=== PATIENT | male | born 1935 | race Caucasian/White ===

== ENCOUNTER 2017-03-30 11:29 | Emergency (ER) | payer MEDICARE, BC ==
--- NOTE | 2017-03-30 11:46 | Emergency Department Record ---
History of Present Illness - General Chief complaint: Weakness Stated complaint: FALL/POSSIBLE UTI Time Seen by Provider: 03/30/17 11:35 Source: Patient Mode of Arrival: Wheelchair Limitations: No limitations - History of Present Illness Initial comments: 81 yo male presents after a fall with weakness. The of the patient was transferring him positions and he slumped to the ground. No syncope or LOC. She does not think he has any injuries. EMS was call to house for a lift assist. She brought him to the ED due to his significant weakness. In the past this has been UTI's per the . The patient has significant dementia and is a poor historian. He does deny any pain. No recent fevers, chills, vomiting or diarrhea. He saw his PCP yesterday. His Lisinopril yesterday was decreased from 10mg to 5mg. No other changes. He was discharged form [facility] on Monday. He has been getting around the home with a walker on his own since rehab discharge one week ago. This morning his legs seemed very shaky and weak and he was unable to get off the toilet with her help. The weakness is bilateral and not one sided. MD Complaint: Generalized weakness Onset/Timin -: Hour(s) Location: Generalized Severity: Moderate Consistency: Intermittent Improves with: None Worsens with: None Context: Other (Dementia) Associated Symptoms: Confusion - Tariq Coma Scale Eye Response: (4) Open spontaneously Motor Response: (6) Obeys commands Verbal Response: (5) Oriented Tariq Total: 15 - Related Data Home Medications Medication Instructions Recorded Confirmed Last Taken Bupropion HCl [Bupropion Xl] 150 mg PO DAILY 09/18/16 03/30/17 03/29/17 Carbidopa/Levodopa [Carbidopa-Levo 2 each PO TID 09/18/16 03/30/17 03/29/17 25-100 mg Odt] Cholecalciferol (Vitamin D3) 1,000 unit PO DAILY 09/18/16 03/30/17 03/29/17 [Vitamin D3] Citalopram Hydrobromide 40 mg PO DAILY 09/18/16 03/30/17 03/29/17 [Citalopram HBr] Dicyclomine HCl 10 mg PO DAILY 09/18/16 03/30/17 03/30/17 Donepezil HCl 10 mg PO DAILY 09/18/16 03/30/17 03/29/17 Fesoterodine Fumarate [Toviaz] 4 mg PO DAILY 09/18/16 03/30/17 03/29/17 Insulin Glargine,Hum.rec.anlog 34 unit SQ DAILY 09/18/16 03/30/17 03/29/17 [Lantus] Lisinopril 10 mg PO DAILY 09/18/16 03/30/17 03/29/17 Metformin HCl [Glucophage Xr] 750 mg PO DAILY 09/18/16 03/30/17 03/29/17 Metoprolol Succinate 25 mg PO BID 09/18/16 03/30/17 03/29/17 Multivitamin [Multi-Vitamin Daily] 1 each PO DAILY 09/18/16 03/30/17 03/29/17 Pioglitazone HCl 45 mg PO DAILY 09/18/16 03/30/17 03/29/17 Simvastatin [Simvastatin] 20 mg PO DAILY 09/18/16 03/30/17 03/29/17 Aspirin [Adult Low Dose Aspirin EC] 81 mg PO DAILY 03/30/17 03/30/17 03/29/17 Allergies Allergy/AdvReac Type Severity Reaction Status Date / Time No Known Drug Allergies Allergy Unknown Verified 09/18/16 11:12 [NO KNOWN DRUG ALLERGIES] Travel Screening - Travel/Exposure Within Last 30 Days Have you traveled within the last 30 days?: No - Travel/Exposure Within Last Year Have you traveled outside the [place] in the last year?: No - Additonal Travel Details Have you been exposed to anyone with a communicable illness?: No Review of Systems Constitutional: Reports: Malaise, Weakness. Denies: Chills, Fever Eyes: Denies: Eye discharge, Eye pain ENT: Denies: Congestion, Throat pain Respiratory: Denies: Cough, Dyspnea, Hemoptysis, Stridor, Wheezes Cardiovascular: Denies: Chest pain, Palpitations, Syncope Endocrine: Reports: Fatigue. Denies: Polydipsia, Polyuria Gastrointestinal: Denies: Abdominal pain, Diarrhea, Nausea, Vomiting Genitourinary: Denies: Discharge, Dysuria, Frequency, Hematuria Musculoskeletal: Denies: Arthralgia, Back pain, Joint swelling, Myalgia Skin: Denies: Bruising, Change in color, Rash Neurological: Reports: Confusion (dementia), Weakness (generalized). Denies: Headache, Numbness, Vertigo Psychiatric: Denies: Anxiety Hematological/Lymphatic: Reports: Easy bruising. Denies: Easy bleeding, Swollen glands Past Medical History - SOCIAL HISTORY Smoking Status: Former smoker Alcohol Use: Rare Drug Use: None - RESPIRATORY Hx Respiratory Disorders: Yes Hx Sleep Apnea: Yes Hx of CPAP: Yes - CARDIOVASCULAR Hx Cardio Disorders: Yes Hx Chest Pain: Yes Hx Hypertension: Yes - NEURO Hx Neuro Disorders: Yes Hx TIA: Yes (2013) Comment:: alzheimer's - GI Hx GI Disorders: Yes Hx Irritable Bowel: Yes - Hx Genitourinary Disorders: Yes Comment:: incontinence - ENDOCRINE Hx Endocrine Disorders: Yes Hx Diabetes: Yes Hx Thyroid Disease: No - MUSCULOSKELETAL Hx Musculoskeletal Disorders: No - PSYCH Hx Psych Problems: No - HEMATOLOGY/ONCOLOGY Hx Hematology/Oncology Disorders: Yes Hx Cancer: Yes (skin) Family Medical History Any Significant Family History?: No Hx Cancer: Father, Mother Physical Exam - General General Appearance: Alert, Cooperative, No acute distress - Head Head exam: Atraumatic, Normocephalic, Normal inspection - Eye Eye exam: Normal appearance. negative: Conjunctival injection, Periorbital swelling - ENT ENT exam: Normal exam, Mucous membranes moist Ear exam: Normal external inspection Nasal Exam: Normal inspection Mouth exam: Normal external inspection Teeth exam: Normal inspection Throat exam: Normal inspection - Neck Neck exam: Normal inspection, Full ROM. negative: Tenderness - Respiratory Respiratory exam: Normal lung sounds bilaterally. negative: Respiratory distress, Rhonchi, Stridor, Wheezes - Cardiovascular Cardiovascular Exam: Bradycardia Peripheral Pulses: 2+: Radial (R), Radial (L) - GI/Abdominal GI/Abdominal exam: Soft. negative: Distended, Tenderness - Rectal Rectal exam: Deferred - exam: Deferred - Extremities Extremities exam: Full ROM, Normal capillary refill. negative: Calf tenderness , Joint swelling, Tenderness - Back Back exam: Reports: Normal inspection, Full ROM. Denies: CVA tenderness (R), CVA tenderness (L), Muscle spasm, Paraspinal tenderness, Rash noted, Tenderness , Vertebral tenderness - Neurological Neurological exam: Abnormal gait, Alert, Other (No PND of the upper or lower extremities, he is able to equally raise both legs off the bed at this time). negative: Altered, Motor sensory deficit, Normal gait (Required 2 person lift assist to get into bed, unable to do on own) - Psychiatric Psychiatric exam: negative: Anxious - Skin Skin exam: Abrasion (left forearm, appears older than today) Course Vital Signs 03/30/17 11:30 Temperature 98.4 F Pulse Rate 62 Respiratory 18 Rate Blood Pressure 123/64 Pulse Ox 97 - Reevaluation(s) Reevaluation #1: EKG Ventricular Bigeminy rate of 82, Intervals MO 262, QTc 532, [place] left, ST No acute changes, poor r wave progression. No Prior EKG on EMR, prior rhythm strip demonstrated NSR without Bigeminy. 03/30/17 12:13 03/30/17 12:14 Reevaluation #2: The labs were reviewed. No significant changes on the CBC, CMP, UA. No UTI at this time. The results were discussed with the . The rhythm does not appear to be bigeminy at this time. Repeat EKG ordered. 03/30/17 12:57 03/30/17 13:03 EKG #2 @13:22 NSR rate 64, intervals prolong MO, [place] left, poor R wave progression, No ST changes 03/30/17 13:35 Reevaluation #3: The HCT was reviewed. No changes from the prior. 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 The states he has been worked up for this in the past and even had CSF drainage that did not help clinically with symptoms. The patient did ambulate with his walker. The states she has very good support and prefers home and not admission or thoughts of intermediate manager facility care. They have [facility], home PT and home nursing care already. 03/30/17 15:52 Medical Decision Making - Lab Data Result diagrams: 03/30/17 12:01 03/30/17 12:01 Disposition Disposition: Discharge Clinical Impression: Weakness Disposition: Home, Self-Care Condition: (2) Stable Instructions: Weakness (ED) Additional Instructions: Return if you have any concerns about Mr Messina and his health or safety at home Follow up with your doctor first of the week Forms: Patient Portal Access Time of Disposition: 16:00
[2017-03-30 12:17] LABS: BASO % 0.3 % (0-6); EOS % 2.8 % (0-6); GRAN % 73.5 % (47-80); HEMATOCRIT 35.3 % (42.0-52.0); HEMOGLOBIN 11.5 gm/dl (14.0-18.0); LYMPH % 15.1 % (16-45); MEAN CELL VOLUME 99.4 fl (81-97); MEAN CORPUSCULAR HEMOGLOBIN 32.3 pg (27-33); MEAN CORPUSCULAR HGB CONC 32.6 g/dl (32-36); MEAN PLATELET VOLUME 8.9 fl (7.4-10.4); MONO % 8.3 % (0-9); PLATELET COUNT 204 K/uL (130-400); RED BLOOD COUNT 3.55 M/uL (4.40-5.70); RED CELL DISTRIBUTION WIDTH 13.7 % (11.5-14.5); WHITE BLOOD COUNT W/O DIFF 6.8 K/uL (4.2-12.2)
[2017-03-30 12:29] LABS: ALB/GLOB RATIO 1.1 (1.1-1.8); ALBUMIN 3.3 gm/dL (3.5-5.0); ALKALINE PHOSPHATASE 147 U/L (38-126); ALT/SGPT 23 U/L (21-72); ANION GAP 5.2 (7-16); AST/SGOT 34 U/L (17-59); BILIRUBIN,TOTAL 1.05 mg/dL (0.2-1.3); BLOOD UREA NITROGEN 22 mg/dL (9-20); CARBON DIOXIDE 23.8 mmol/L (22-30); CREATININE 0.7 mg/dL (0.66-1.25); EST GLOMERULAR FILTRATION RATE > 60 ml/min; GLUCOSE,RANDOM 131 mg/dL (70-110); TOTAL PROTEIN 6.2 gm/dL (6.3-8.2)
[2017-03-30 12:30] LABS: URINE APPEARANCE CLEAR; URINE BILIRUBIN NEGATIVE (NEGATIVE); URINE BLOOD TRACE-L (NEGATIVE); URINE COLOR YELLOW; URINE GLUCOSE (UA) NEGATIVE (NEGATIVE); URINE KETONE NEGATIVE (NEGATIVE); URINE LEUKOCYTE ESTERASE NEGATIVE (NEGATIVE); URINE NITRITE NEGATIVE (NEGATIVE); URINE PROTEIN TRACE (NEGATIVE); URINE UROBILINOGEN 0.2 E.U./dL (0.20 - 1.00)
[2017-03-30 12:39] LABS: URINE BACTERIA NONE SEEN; URINE EPITHELIAL CELLS NONE SEEN (FEW); URINE RBC RARE (NONE SEEN); URINE WBC NONE SEEN (0-2/hpf)
[2017-03-30 12:41] LABS: TROPONIN I < 0.012 ng/mL (0.00-0.034)
--- NOTE | 2017-03-31 08:01 | CT SCAN REPORT ---
EXAM: EMERGENCY HEAD CT HISTORY: PATIENT FELL, CONFUSION, WEAKNESS. TECHNIQUE: Axial CT scan of the head was performed without IV contrast. Comparison: Head CT dated 09/18/16. Encounter: Initial. FINDINGS: No definite acute intracranial hemorrhage identified. No focal mass effect or midline shift apparent. Moderate generalized atrophy as before. Chronic appearing deep white matter changes again seen, nonspecific, but likely representing some chronic small vessel deep white matter ischemia. The degree of ventriculomegaly appears slightly more pronounced on the cortical sulci. Component of normal pressure hydrocephalus could not absolutely be excluded. This appearance is essentially unchanged from before. No definite acute infarct or intracranial mass lesion is seen. No depressed calvarial fracture is evident. IMPRESSION: 1. NO DEFINITE ACUTE INTRACRANIAL HEMORRHAGE OR FOCAL MASS EFFECT EVIDENT. 2. GENERALIZED ATROPHY WITH CHRONIC APPEARING DEEP WHITE MATTER CHANGES. 3. VENTRICULOMEGALY SOMEWHAT MORE PROMINENT THAN THE SULCI AND A COMPONENT OF NORMAL PRESSURE HYDROCEPHALUS COULD NOT BE EXCLUDED. THIS APPEARS ESSENTIALLY UNCHANGED FROM BEFORE. JOB NUMBER: [id number] [facility]
== END 2017-03-30 16:38 | disposition home or self-care (01) ==
LOC: ER 11:29
DX: R53.1 Weakness (principal); R00.8 Other abnormalities of heart beat; E11.9 Type 2 diabetes mellitus without complications; I10 Essential (primary) hypertension; Z87.891 Personal history of nicotine dependence; G30.9 Alzheimer's disease, unspecified; F02.80 Dementia in other diseases classified elsewhere, unspecified severity, without behavioral disturbance, psychotic disturbance, mood disturbance, and anxiety; W18.30XA Fall on same level, unspecified, initial encounter; Y92.009 Unspecified place in unspecified non-institutional (private) residence as the place of occurrence of the external cause
CPT/HCPCS: 36416; 70450; 80053; 81001; 82948; 83735; 84443; 84484; 85025; 93005; 93010; 99284

== ENCOUNTER 2017-06-03 11:50 | Emergency (ER) | payer MEDICARE, BC ==
[2017-06-03 12:20] LABS: URINE APPEARANCE CLOUDY; URINE BILIRUBIN NEGATIVE (NEGATIVE); URINE BLOOD LARGE (NEGATIVE); URINE GLUCOSE (UA) NEGATIVE (NEGATIVE); URINE KETONE NEGATIVE (NEGATIVE); URINE LEUKOCYTE ESTERASE TRACE (NEGATIVE); URINE NITRITE NEGATIVE (NEGATIVE); URINE UROBILINOGEN 0.2 E.U./dL (0.20 - 1.00)
[2017-06-03 12:22] LABS: URINE COLOR BROWN
--- NOTE | 2017-06-03 12:24 | Emergency Department Record ---
History of Present Illness - General Chief complaint: Male Urogenital Problem Stated complaint: BLOOD IN URINE Time Seen by Provider: 06/03/17 12:16 Source: Patient, Family (), RN notes reviewed Mode of Arrival: Wheelchair - History of Present Illness Initial comments: this am patient had a bloody urine seen on depends per . patient able to urinate this am . Dementia for 7 years. seven prostate surgery. [id number], DM CRUZ, Parkinson's syndrome, IBS, Onset/Timin -: Hour(s) Radiation: None Consistency: Intermittent Improves with: None Worsens with: None Reports: Blood in urine - Related Data Sexually active: No Home Medications Medication Instructions Recorded Confirmed Last Taken Bupropion HCl [Bupropion Xl] 150 mg PO DAILY 09/18/16 06/03/17 03/29/17 Carbidopa/Levodopa [Carbidopa-Levo 2 each PO TID 09/18/16 06/03/17 03/29/17 25-100 mg Odt] Cholecalciferol (Vitamin D3) 1,000 unit PO DAILY 09/18/16 06/03/17 03/29/17 [Vitamin D3] Citalopram Hydrobromide 40 mg PO DAILY 09/18/16 06/03/17 03/29/17 [Citalopram HBr] Dicyclomine HCl 10 mg PO DAILY 09/18/16 06/03/17 03/30/17 Donepezil HCl 10 mg PO DAILY 09/18/16 06/03/17 03/29/17 Fesoterodine Fumarate [Toviaz] 4 mg PO DAILY 09/18/16 06/03/17 03/29/17 Insulin Glargine,Hum.rec.anlog 34 unit SQ DAILY 09/18/16 06/03/17 03/29/17 [Lantus] Lisinopril 5 mg PO DAILY 09/18/16 06/03/17 03/29/17 Metformin HCl [Glucophage Xr] 750 mg PO DAILY 09/18/16 06/03/17 03/29/17 Metoprolol Succinate 25 mg PO BID 09/18/16 06/03/17 03/29/17 Multivitamin [Multi-Vitamin Daily] 1 each PO DAILY 09/18/16 06/03/17 03/29/17 Pioglitazone HCl 45 mg PO DAILY 09/18/16 06/03/17 03/29/17 Simvastatin [Simvastatin] 20 mg PO DAILY 09/18/16 06/03/17 03/29/17 Aspirin [Adult Low Dose Aspirin EC] 81 mg PO DAILY 03/30/17 06/03/17 03/29/17 Cranberry Fruit Extract [Cranberry] 500 mg PO BID 06/03/17 06/03/17 Unknown Lactase [Lactaid] 3,000 unit PO ASDIR 06/03/17 06/03/17 Unknown Previous Rx's Medication Instructions Recorded Cephalexin [Keflex] 500 mg PO TID #30 cap 06/03/17 Allergies Allergy/AdvReac Type Severity Reaction Status Date / Time No Known Drug Allergies Allergy Unknown Verified 09/18/16 11:12 [NO KNOWN DRUG ALLERGIES] Travel Screening - Travel/Exposure Within Last 30 Days Have you traveled within the last 30 days?: No Review of Systems Reviewed: No additional complaints except as noted below Constitutional: Reports: As per HPI. Denies: Chills, Fever, Malaise, Night sweats, Weakness, Weight change Eyes: Reports: As per HPI. Denies: Eye discharge, Eye pain, Photophobia, Vision change ENT: Reports: As per HPI. Denies: Congestion, Dental pain, Ear pain, Epistaxis , Hearing loss, Throat pain Respiratory: Reports: As per HPI. Denies: Cough, Dyspnea, Hemoptysis, Stridor, Wheezes Cardiovascular: Reports: As per HPI. Denies: Arrhythmia, Chest pain, Dyspnea on exertion, Edema, Murmurs, Orthopnea, Palpitations, Paroxysmal nocturnal dyspnea, Rheumatic Fever, Syncope Endocrine: Reports: As per HPI. Denies: Fatigue, Heat or cold intolerance, Polydipsia, Polyuria Gastrointestinal: Reports: As per HPI. Denies: Abdominal pain, Constipation, Diarrhea, Hematemesis, Hematochezia, Melena, Nausea, Vomiting Genitourinary: Reports: As per HPI, Hematuria. Denies: Dysuria, Frequency, Incontinence, Retention, Testicular pain, Testicular mass, Urgency Musculoskeletal: Reports: As per HPI. Denies: Arthralgia, Back pain, Gout, Joint swelling, Myalgia, Neck pain Skin: Reports: As per HPI. Denies: Bruising, Change in color, Change in hair/ nails, Lesions, Pruritus, Rash Neurological: Reports: As per HPI. Denies: Abnormal gait, Confusion, Headache, Numbness, Paresthesias, Seizure, Tingling, Tremors, Vertigo, Weakness Psychiatric: Reports: As per HPI. Denies: Anxiety, Auditory hallucinations, Depression, Homicidal thoughts, Suicidal thoughts, Visual hallucinations Hematological/Lymphatic: Reports: As per HPI. Denies: Anemia, Blood Clots, Easy bleeding, Easy bruising, Swollen glands Past Medical History - SOCIAL HISTORY Smoking Status: Former smoker Alcohol Use: None Drug Use: None - RESPIRATORY Hx Respiratory Disorders: Yes Hx Sleep Apnea: Yes Hx of CPAP: Yes - CARDIOVASCULAR Hx Cardio Disorders: Yes Hx Chest Pain: Yes Hx Hypertension: Yes - NEURO Hx Neuro Disorders: Yes Hx TIA: Yes (2013) Comment:: alzheimer's - GI Hx GI Disorders: Yes Hx Irritable Bowel: Yes - Hx Genitourinary Disorders: Yes Hx UTI: Yes Comment:: incontinence - ENDOCRINE Hx Endocrine Disorders: Yes Hx Diabetes: Yes Hx Thyroid Disease: No - MUSCULOSKELETAL Hx Musculoskeletal Disorders: No - PSYCH Hx Psych Problems: No - HEMATOLOGY/ONCOLOGY Hx Hematology/Oncology Disorders: Yes Hx Cancer: Yes (skin) Family Medical History Any Significant Family History?: Yes Hx Cancer: Father, Mother Physical Exam - General General Appearance: Alert, Oriented x3, Cooperative, No acute distress - Head Head exam: Normal inspection - Eye Eye exam: Normal appearance, PERRL Pupils: Normal accommodation - ENT ENT exam: Normal exam, Mucous membranes moist, Normal external ear exam, Normal orophraynx, TM's normal bilaterally Ear exam: Normal external inspection. negative: External canal tenderness Nasal Exam: Normal inspection. negative: Discharge, Sinus tenderness Mouth exam: Normal external inspection, Tongue normal Teeth exam: Normal inspection. negative: Dental caries Throat exam: Normal inspection. negative: Tonsillar erythema, Tonsillar exudate - Neck Neck exam: Normal inspection, Full ROM. negative: Tenderness - Respiratory Respiratory exam: Normal lung sounds bilaterally. negative: Respiratory distress - Cardiovascular Cardiovascular Exam: Regular rate, Normal rhythm, Normal heart sounds - GI/Abdominal GI/Abdominal exam: Soft, Normal bowel sounds. negative: Tenderness - Rectal Rectal exam: Deferred - exam: Deferred - Extremities Extremities exam: Normal inspection, Full ROM, Normal capillary refill. negative: Tenderness - Back Back exam: Reports: Normal inspection, Full ROM. Denies: Muscle spasm, Rash noted, Tenderness - Neurological Neurological exam: Alert, Normal gait, Oriented X3, Reflexes normal - Psychiatric Psychiatric exam: Normal affect, Normal mood - Skin Skin exam: Dry, Intact, Normal color, Warm Course Vital Signs 06/03/17 11:58 Temperature 98.8 F Pulse Rate 60 Respiratory 20 Rate Blood Pressure 113/52 Pulse Ox 98 Disposition Clinical Impression: UTI (urinary tract infection) Qualifiers: Urinary tract infection type: acute cystitis Hematuria presence: with hematuria Qualified Code(s): N30.01 - Acute cystitis with hematuria Hematuria Qualifiers: Hematuria type: gross Qualified Code(s): R31.0 - Gross hematuria Disposition: Home, Self-Care Condition: (1) Good Instructions: Urinary Tract Infection in Men (ED), Hematuria (ED) Additional Instructions: follow up with family on monday Prescriptions: Cephalexin [Keflex] 500 mg PO TID #30 cap Forms: Patient Portal Access Time of Disposition: 12:31 Quality - Quality Measures Quality Measures: N/A - Blood Pressure Screening Does Patient Have Any of the Following: No Blood Pressure Classification: Normal BP Reading Systolic Measurement: 113 Diastolic Measurement: 52 Screening for High Blood Pressure: < Normal BP, F/U Not Required > [G8783]
[2017-06-03 12:34] LABS: URINE EPITHELIAL CELLS NONE SEEN (FEW)
== END 2017-06-03 12:52 | disposition home or self-care (01) ==
LOC: ER 11:50
DX: N30.01 Acute cystitis with hematuria (principal)
CPT/HCPCS: 81001; 99282

== ENCOUNTER 2018-09-06 18:17 | Emergency (ER) | payer MEDICARE, BC ==
--- NOTE | 2018-09-06 18:48 | Emergency Department Record ---
History of Present Illness - General Chief complaint: Male Urogenital Problem Stated complaint: PEEING BLOOD Time Seen by Provider: 09/06/18 18:32 Source: Patient, Family Mode of Arrival: Ambulatory Limitations: No limitations - History of Present Illness Initial comments: The patient is here due to a one day hx of dysuria and mild hematuria. He has a hx of frequent UTI's similar to this. There is no reported pain, nausea, vomiting, diarrhea or fever. The patient is not on blood thinners cut does take a baby ASA daily. The patient was admitted to [facility] 2 months ago for the same thing and was in the hospital for 6 days. This episode is not as bad as that visit. MD Complaint: Dysuria, Other Onset/Timin -: Days(s) Improves with: None Worsens with: None Reports: Blood in urine - Related Data Previous Rx's Medication Instructions Recorded Sulfamethoxazole/Trimethoprim 1 tab PO BID #20 tab 09/06/18 [Bactrim Ds] Allergies Allergy/AdvReac Type Severity Reaction Status Date / Time No Known Drug Allergies Allergy Unknown Verified 09/06/18 18:26 [NO KNOWN DRUG ALLERGIES] Travel Screening - Travel/Exposure Within Last 30 Days Have you traveled within the last 30 days?: No Review of Systems Constitutional: Denies: Chills, Fever Eyes: Denies: Eye discharge ENT: Denies: Congestion, Other Respiratory: Denies: Cough, Dyspnea Past Medical History - SOCIAL HISTORY Smoking Status: Former smoker Alcohol Use: None Drug Use: None - RESPIRATORY Hx Respiratory Disorders: Yes Hx Sleep Apnea: Yes Hx of CPAP: Yes - CARDIOVASCULAR Hx Cardio Disorders: Yes Hx Chest Pain: Yes Hx Hypertension: Yes - NEURO Hx Neuro Disorders: Yes Hx TIA: Yes (2013) Comment:: alzheimer's - GI Hx GI Disorders: Yes Hx Irritable Bowel: Yes - Hx Genitourinary Disorders: Yes Hx UTI: Yes Comment:: incontinence - ENDOCRINE Hx Endocrine Disorders: Yes Hx Diabetes: Yes Hx Thyroid Disease: No - MUSCULOSKELETAL Hx Musculoskeletal Disorders: No - PSYCH Hx Psych Problems: No - HEMATOLOGY/ONCOLOGY Hx Hematology/Oncology Disorders: Yes Hx Cancer: Yes (skin) Family Medical History Any Significant Family History?: Yes Hx Cancer: Father, Mother Physical Exam - General General Appearance: Alert, Oriented x3, Cooperative, No acute distress - Head Head exam: Atraumatic, Normocephalic, Normal inspection - Eye Eye exam: Normal appearance, PERRL - Neck Neck exam: Normal inspection, Full ROM. negative: Tenderness - Respiratory Respiratory exam: Normal lung sounds bilaterally. negative: Respiratory distress - Cardiovascular Cardiovascular Exam: Regular rate, Normal rhythm, Normal heart sounds. negative : Diastolic murmur, Systolic murmur - GI/Abdominal GI/Abdominal exam: Soft, Normal bowel sounds. negative: Organomegaly, Pulsatile mass, Rebound, Rigid, Tenderness - Extremities Extremities exam: Normal inspection, Full ROM, Normal capillary refill. negative: Tenderness - Neurological Neurological exam: Alert. negative: Motor sensory deficit Course Vital Signs 09/06/18 18:23 Temperature 97.5 F L Pulse Rate 57 L Respiratory 18 Rate Blood Pressure 119/54 Pulse Ox 100 - Reevaluation(s) Reevaluation #1: The patient is doing very well at this time. He had no pain or nausea. I did discuss the labs and UA result with the patient and and did discuss the need for F/U. 09/06/18 19:17 Medical Decision Making - Data Complexity MDM Data: Labs Ordered and/or Reviewed - Lab Data Result diagrams: 09/06/18 18:42 09/06/18 18:42 Disposition Disposition: Discharge Clinical Impression: UTI (urinary tract infection) Qualifiers: Urinary tract infection type: acute cystitis Hematuria presence: with hematuria Qualified Code(s): N30.01 - Acute cystitis with hematuria Disposition: Home, Self-Care Condition: (2) Stable Instructions: Urinary Tract Infection in Men (ED) Additional Instructions: Please give plenty of fluids and take the Bactrim as directed. Please see your family doctor early next week for recheck and return to the ER for any worsening symptoms. Prescriptions: Sulfamethoxazole/Trimethoprim [Bactrim Ds] 1 tab PO BID #20 tab Forms: Patient Portal Access Time of Disposition: 19:19 Quality - Quality Measures Quality Measures: N/A - Blood Pressure Screening View Details: Yes Does Patient Have Any of the Following: No Blood Pressure Classification: Normal BP Reading Systolic Measurement: 119 Diastolic Measurement: 73 Screening for High Blood Pressure: < Normal BP, F/U Not Required > [G8783]
[2018-09-06 18:56] LABS: BASO % 0.5 % (0-6); EOS % 4.7 % (0-6); GRAN % 59.9 % (47-80); HEMATOCRIT 38.1 % (42.0-52.0); HEMOGLOBIN 12.5 gm/dl (14.0-18.0); LYMPH % 26.7 % (16-45); MEAN CELL VOLUME 97.7 fl (81-97); MEAN CORPUSCULAR HGB CONC 32.8 g/dl (32-36); MEAN PLATELET VOLUME 8.7 fl (7.4-10.4); MONO % 8.2 % (0-9); PLATELET COUNT 193 K/uL (130-400); RED CELL DISTRIBUTION WIDTH 12.8 % (11.5-14.5)
[2018-09-06 19:06] LABS: URINE BILIRUBIN NEGATIVE (NEGATIVE); URINE BLOOD MODERATE (NEGATIVE); URINE KETONE NEGATIVE (NEGATIVE); URINE LEUKOCYTE ESTERASE TRACE (NEGATIVE); URINE NITRITE POSITIVE (NEGATIVE); URINE PROTEIN TRACE (NEGATIVE); URINE UROBILINOGEN 0.2 E.U./dL (0.20 - 1.00)
[2018-09-06 19:07] LABS: URINE APPEARANCE SL CLOUDY; URINE COLOR DARK YELLOW
[2018-09-06 19:08] LABS: BLOOD UREA NITROGEN 25 mg/dL (8-23)
[2018-09-06 19:09] LABS: CREATININE 0.9 mg/dL (0.7-1.2); EST GLOMERULAR FILTRATION RATE > 60 mL/min; URINE BACTERIA 4+; URINE EPITHELIAL CELLS 0 - 2 (FEW); URINE RBC >50 (NONE SEEN)
[2018-09-06 19:11] LABS: GLUCOSE,RANDOM 308 mg/dL (74-109)
[2018-09-06] MEDS ORDERED: TMP/SMZ 160MG/800MG TAB PO ONE (19:16)
== END 2018-09-06 19:38 | disposition home or self-care (01) ==
LOC: ER 18:17
DX: N30.01 Acute cystitis with hematuria (principal); I10 Essential (primary) hypertension; Z87.891 Personal history of nicotine dependence
CPT/HCPCS: 99283 ×2; 85025; 80048; 81001; J3490

== ENCOUNTER 2018-12-23 20:11 | Emergency (ER) | payer MEDICARE, BC ==
[2018-12-23 21:42] LABS: URINE BILIRUBIN NEGATIVE (NEGATIVE); URINE BLOOD LARGE (NEGATIVE); URINE COLOR YELLOW; URINE KETONE NEGATIVE (NEGATIVE); URINE LEUKOCYTE ESTERASE TRACE (NEGATIVE); URINE NITRITE POSITIVE (NEGATIVE); URINE PROTEIN TRACE (NEGATIVE); URINE UROBILINOGEN 0.2 E.U./dL (0.20 - 1.00)
[2018-12-23 21:47] LABS: URINE APPEARANCE SL CLOUDY; URINE EPITHELIAL CELLS 0 - 2 (FEW); URINE RBC >50 (NONE SEEN); URINE WBC 0 - 2 (0-2/hpf)
[2018-12-23 21:48] LABS: URINE AMORPHOUS SEDIMENT 1+; URINE BACTERIA 2+
[2018-12-23] MEDS ORDERED: CEPHALEXIN 500 MG CAPSULE PO STA (22:16)
--- NOTE | 2018-12-23 22:19 | Emergency Department Record ---
History of Present Illness - General Chief complaint: Male Urogenital Problem Stated complaint: UTI Time Seen by Provider: 12/23/18 22:00 Source: Patient, Family Mode of Arrival: Wheelchair Limitations: Altered mental status, Other (dementia) - History of Present Illness Initial comments: pt has had blood in his urine today. he usually get this when he has a uti. he has seen a urologist for this before. he has no other symptoms MD Complaint: Other Onset/Timin -: Days(s) Severity: Mild Consistency: Constant Improves with: None Worsens with: None Reports: Incontinence - Related Data Previous Rx's Medication Instructions Recorded Nitrofurantoin Ross [Macrobid] 100 mg PO BID #10 capsule 12/23/18 Allergies Allergy/AdvReac Type Severity Reaction Status Date / Time No Known Drug Allergies Allergy Unknown Verified 09/06/18 18:26 [NO KNOWN DRUG ALLERGIES] Travel Screening - Travel/Exposure Within Last 30 Days Have you traveled within the last 30 days?: No Review of Systems Reviewed: No additional complaints except as noted below Constitutional: Reports: As per HPI. Denies: Chills, Fever, Malaise, Night sweats, Weakness, Weight change Eyes: Reports: As per HPI. Denies: Eye discharge, Eye pain, Photophobia, Vision change ENT: Reports: As per HPI. Denies: Congestion, Dental pain, Ear pain, Epistaxis , Hearing loss, Throat pain Respiratory: Reports: As per HPI. Denies: Cough, Dyspnea, Hemoptysis, Stridor, Wheezes Cardiovascular: Reports: As per HPI. Denies: Arrhythmia, Chest pain, Dyspnea on exertion, Edema, Murmurs, Orthopnea, Palpitations, Paroxysmal nocturnal dyspnea, Rheumatic Fever, Syncope Endocrine: Reports: As per HPI. Denies: Fatigue, Heat or cold intolerance, Polydipsia, Polyuria Gastrointestinal: Reports: As per HPI. Denies: Abdominal pain, Constipation, Diarrhea, Hematemesis, Hematochezia, Melena, Nausea, Vomiting Genitourinary: Reports: As per HPI, Hematuria. Denies: Dysuria, Frequency, Incontinence, Retention, Testicular pain, Testicular mass, Urgency Musculoskeletal: Reports: As per HPI. Denies: Arthralgia, Back pain, Gout, Joint swelling, Myalgia, Neck pain Skin: Reports: As per HPI. Denies: Bruising, Change in color, Change in hair/ nails, Lesions, Pruritus, Rash Neurological: Reports: As per HPI, Other. Denies: Abnormal gait, Confusion, Headache, Numbness, Paresthesias, Seizure, Tingling, Tremors, Vertigo, Weakness Psychiatric: Reports: As per HPI. Denies: Anxiety, Auditory hallucinations, Depression, Homicidal thoughts, Suicidal thoughts, Visual hallucinations Hematological/Lymphatic: Reports: As per HPI. Denies: Anemia, Blood Clots, Easy bleeding, Easy bruising, Swollen glands Past Medical History - SOCIAL HISTORY Smoking Status: Former smoker Alcohol Use: None Drug Use: None - RESPIRATORY Hx Respiratory Disorders: Yes Hx Sleep Apnea: Yes Hx of CPAP: Yes - CARDIOVASCULAR Hx Cardio Disorders: Yes Hx Chest Pain: Yes Hx Hypertension: Yes - NEURO Hx Neuro Disorders: Yes Hx TIA: Yes (2013) Comment:: alzheimer's - GI Hx GI Disorders: Yes Hx Irritable Bowel: Yes - Hx Genitourinary Disorders: Yes Hx UTI: Yes Comment:: incontinence - ENDOCRINE Hx Endocrine Disorders: Yes Hx Diabetes: Yes Hx Thyroid Disease: No - MUSCULOSKELETAL Hx Musculoskeletal Disorders: No - PSYCH Hx Psych Problems: No - HEMATOLOGY/ONCOLOGY Hx Hematology/Oncology Disorders: Yes Hx Cancer: Yes (skin) Family Medical History Any Significant Family History?: Yes Hx Cancer: Father, Mother Physical Exam - General General Appearance: Alert, Oriented x3, Cooperative, No acute distress - Head Head exam: Normal inspection - Eye Eye exam: Normal appearance, PERRL, EOMI Pupils: Normal accommodation - ENT ENT exam: Normal exam, Mucous membranes moist, Normal external ear exam, Normal orophraynx Ear exam: Normal external inspection. negative: External canal tenderness Nasal Exam: Normal inspection. negative: Discharge, Sinus tenderness Mouth exam: Normal external inspection, Tongue normal Teeth exam: Normal inspection. negative: Dental caries Throat exam: Normal inspection. negative: Tonsillar erythema, Tonsillar exudate - Neck Neck exam: Normal inspection, Full ROM. negative: Tenderness - Respiratory Respiratory exam: Normal lung sounds bilaterally. negative: Respiratory distress - Cardiovascular Cardiovascular Exam: Regular rate, Normal rhythm, Normal heart sounds - GI/Abdominal GI/Abdominal exam: Soft, Normal bowel sounds. negative: Tenderness - Rectal Rectal exam: Deferred - exam: Deferred - Extremities Extremities exam: Normal inspection, Full ROM, Normal capillary refill. negative: Tenderness - Back Back exam: Reports: Normal inspection, Full ROM. Denies: Muscle spasm, Rash noted, Tenderness - Neurological Neurological exam: Alert, CN II-XII intact, Normal gait, Oriented X3 - Psychiatric Psychiatric exam: Normal affect, Normal mood - Skin Skin exam: Dry, Intact, Normal color, Warm Course Vital Signs 12/23/18 21:14 Temperature 97.7 F Pulse Rate 55 L Respiratory 20 Rate Blood Pressure 115/62 Pulse Ox 100 Medical Decision Making - Lab Data Lab Results 12/23/18 Range/Units 21:40 Urine Color Yellow Urine Appearance Sl cloudy Urine pH 5.5 (5.0-8.0) Ur Specific Coden >= 1.030 (1.002-1.030) Urine Protein Trace H (NEGATIVE) Urine Glucose (UA) 250 mg/dl H (NEGATIVE) Urine Ketones Negative (NEGATIVE) Urine Blood Large H (NEGATIVE) Urine Nitrite Positive H (NEGATIVE) Urine Bilirubin Negative (NEGATIVE) Urine Urobilinogen 0.2 (0.20 - 1.00) E.U./dL Ur Leukocyte Esterase Trace H (NEGATIVE) Urine RBC >50 (NONE SEEN) Urine WBC 0 - 2 (0-2/hpf) Ur Epithelial Cells 0 - 2 (FEW) Amorphous Sediment 1+ Urine Bacteria 2+ Disposition Disposition: Discharge Clinical Impression: Urinary tract infection with hematuria Qualifiers: Urinary tract infection type: acute cystitis Qualified Code(s): N30.01 - Acute cystitis with hematuria Disposition: Home, Self-Care Condition: (1) Good Instructions: Urinary Tract Infection in Men (ED) Additional Instructions: follow up with dr zamora this week. return sooner if worse. Prescriptions: Nitrofurantoin Ross [Macrobid] 100 mg PO BID #10 capsule Quality - Quality Measures Quality Measures: N/A - Blood Pressure Screening Does Patient Have Any of the Following: No Blood Pressure Classification: Normal BP Reading Systolic Measurement: 115 Diastolic Measurement: 62 Screening for High Blood Pressure: < Normal BP, F/U Not Required > [G8783]
[2018-12-23] MEDS: NITROFURANTOIN MONO 100 MG CAPSULE PO ONE (22:32)
== END 2018-12-23 22:50 | disposition home or self-care (01) ==
LOC: ER 20:11
DX: N30.01 Acute cystitis with hematuria (principal); E11.9 Type 2 diabetes mellitus without complications; I10 Essential (primary) hypertension; Z87.891 Personal history of nicotine dependence
CPT/HCPCS: 81001; 99282; 99283

== ENCOUNTER 2019-04-02 18:36 | Emergency (ER) | payer MEDICARE, BC ==
--- NOTE | 2019-04-02 18:48 | Emergency Department Record ---
History of Present Illness - General Chief complaint: Male Urogenital Problem Stated complaint: MIGHT HAVE A UTI Time Seen by Provider: 04/02/19 18:42 Source: Family ([place]) Mode of Arrival: Ambulatory Limitations: Other (Dementia) - History of Present Illness Initial comments: 83 yo male with a past medical history significant for dementia and parkinsons presents to ED for evaluation of hematuria and increased weakness per his . SO reports several episodes of similar symptoms related to UTIs, reports that the patient is incontinent at his baseline. Patient's denies fevers, chills, or abdominal pain symptoms. MD Complaint: Other Onset/Timin -: Days(s) Radiation: None Consistency: Constant Improves with: None Worsens with: None Reports: Incontinence - Related Data Sexually active: No Previous Rx's Medication Instructions Recorded Cephalexin [Keflex] 500 mg PO TID #20 cap 04/02/19 Allergies Allergy/AdvReac Type Severity Reaction Status Date / Time No Known Drug Allergies Allergy Unknown Verified 04/02/19 18:39 [NO KNOWN DRUG ALLERGIES] Review of Systems ROS unobtainable: Due to mental status Constitutional: Reports: Weakness Genitourinary: Reports: Hematuria Past Medical History - SOCIAL HISTORY Smoking Status: Former smoker Drug Use: None - RESPIRATORY Hx Respiratory Disorders: Yes Hx Sleep Apnea: Yes Hx of CPAP: Yes - CARDIOVASCULAR Hx Cardio Disorders: Yes Hx Chest Pain: Yes Hx Hypertension: Yes - NEURO Hx Neuro Disorders: Yes Hx TIA: Yes (2013) Comment:: alzheimer's - GI Hx GI Disorders: Yes Hx Irritable Bowel: Yes - Hx Genitourinary Disorders: Yes Hx UTI: Yes Comment:: incontinence - ENDOCRINE Hx Endocrine Disorders: Yes Hx Diabetes: Yes Hx Thyroid Disease: No - MUSCULOSKELETAL Hx Musculoskeletal Disorders: No - PSYCH Hx Psych Problems: No - HEMATOLOGY/ONCOLOGY Hx Hematology/Oncology Disorders: Yes Hx Cancer: Yes (skin) Family Medical History Hx Cancer: Father, Mother Physical Exam - General General Appearance: Alert, Cooperative, No acute distress, Other (Patient is res ting comfortably on examination) Limitations: Other (Dementia) - Head Head exam: Atraumatic, Normocephalic, Normal inspection Head exam detail: negative: Abrasion, Contusion, Reyes's sign, General tenderness, Hematoma, Laceration - Eye Eye exam: Normal appearance. negative: Conjunctival injection, Periorbital swelling, Periorbital tenderness, Scleral icterus - ENT Ear exam: negative: Auricular hematoma, Auricular trauma Nasal Exam: negative: Active bleeding, Discharge, Dried blood, Foreign body Mouth exam: negative: Drooling, Laceration, Muffled voice, Tongue elevation - Neck Neck exam: Normal inspection. negative: Meningismus, Tenderness - Respiratory Respiratory exam: Normal lung sounds bilaterally. negative: Respiratory distress, Rhonchi, Stridor, Wheezes - Cardiovascular Cardiovascular Exam: Regular rate, Normal rhythm, Normal heart sounds - GI/Abdominal GI/Abdominal exam: Soft. negative: Distended, Rebound, Rigid, Tenderness - Rectal Rectal exam: Deferred - exam: Deferred - Extremities Extremities exam: Normal inspection. negative: Pedal edema, Tenderness - Back Back exam: Denies: CVA tenderness (R), CVA tenderness (L) - Neurological Neurological exam: Alert, Normal gait - Psychiatric Psychiatric exam: Normal affect, Normal mood - Skin Skin exam: Normal color. negative: Abrasion Type of lesion: negative: abrasion Course - Reevaluation(s) Reevaluation #1: 04/02/19 18:47 Patient was seen and examined. Will obtain cath UA specimen for evaluation, basic labs to assess for systemic infection, renal function. Patient's is in agreement with the plan of care as discussed. Reevaluation #2: 04/02/19 19:43 Laboratory studies were reviewed and are grossly unremarkable for an acute process except for the following: UA: 3-5 WBCs 3-6 RBCs 2+ Bacteria History, examination, and laboratory studies appears consistent with early UTI Will treat with Keflex as directed with instructions to return to ED for any worsening of the patient's condition. Medical Decision Making - Lab Data Result diagrams: 04/02/19 18:55 04/02/19 18:55 Disposition Disposition: Discharge Clinical Impression: UTI (urinary tract infection) Qualifiers: Urinary tract infection type: acute cystitis Hematuria presence: with hematuria Qualified Code(s): N30.01 - Acute cystitis with hematuria Dementia Qualifiers: Dementia type: unspecified type Dementia behavioral disturbance: without behavioral disturbance Qualified Code(s): F03.90 - Unspecified dementia without behavioral disturbance Disposition: Home, Self-Care Condition: (2) Stable Instructions: Urinary Tract Infection in Men (ED) Additional Instructions: Return to ED if your symptoms worsen or if you have any concerns. Keflex as directed. Follow-up with your family doctor in 3-5 days as directed. Prescriptions: Cephalexin [Keflex] 500 mg PO TID #20 cap Forms: Patient Portal Access Time of Disposition: 19:46 Quality - Quality Measures Quality Measures: N/A - Blood Pressure Screening Does Patient Have Any of the Following: No Blood Pressure Classification: Pre-Hypertensive BP Reading Systolic Measurement: 129 Diastolic Measurement: 75 Screening for High Blood Pressure: < Pre-Hypertensive BP, F/U Documented > [G8950] Pre-Hypertensive Follow-up Interventions: Referral to alternative/primary care provider.
[2019-04-02 19:04] LABS: ABSOLUTE NEUTROPHIL COUNT 3.42; BASO % 0.5 % (0-6); EOS % 4.9 % (0-6); GRAN % 53.5 % (47-80); HEMATOCRIT 38.2 % (42.0-52.0); HEMOGLOBIN 12.5 gm/dl (14.0-18.0); LYMPH % 29.7 % (16-45); MEAN CELL VOLUME 99.2 fl (81-97); MEAN CORPUSCULAR HGB CONC 32.7 g/dl (32-36); MEAN PLATELET VOLUME 8.5 fl (7.4-10.4); MONO % 11.4 % (0-9); PLATELET COUNT 189 K/uL (130-400); RED BLOOD COUNT 3.85 M/uL (4.40-5.70); RED CELL DISTRIBUTION WIDTH 12.9 % (11.5-14.5); WHITE BLOOD COUNT W/O DIFF 6.4 K/uL (4.2-12.2)
[2019-04-02 19:05] LABS: MEAN CORPUSCULAR HEMOGLOBIN 32.4 pg (27-33)
[2019-04-02 19:14] LABS: BLOOD UREA NITROGEN 28 mg/dL (8-23); CREATININE 0.8 mg/dL (0.7-1.2); EST GLOMERULAR FILTRATION RATE > 60 mL/min
[2019-04-02 19:16] LABS: GLUCOSE,RANDOM 228 mg/dL (74-109)
[2019-04-02 19:19] LABS: ALB/GLOB RATIO 1.5 (1.1-1.8); ALBUMIN 3.6 g/dL (4.0-5.0); ALKALINE PHOSPHATASE 137 U/L (40-129); ALT/SGPT 15 U/L (<41); AST/SGOT 22 U/L (10.0-50.0)
[2019-04-02 19:19] LABS: URINE APPEARANCE SL CLOUDY; URINE BILIRUBIN NEGATIVE (NEGATIVE); URINE BLOOD MODERATE (NEGATIVE); URINE COLOR YELLOW; URINE KETONE NEGATIVE (NEGATIVE); URINE LEUKOCYTE ESTERASE SMALL (NEGATIVE); URINE NITRITE POSITIVE (NEGATIVE); URINE PROTEIN TRACE (NEGATIVE); URINE UROBILINOGEN 0.2 E.U./dL (0.20 - 1.00)
[2019-04-02 19:31] LABS: URINE BACTERIA 2+; URINE EPITHELIAL CELLS 0 - 2 (FEW)
[2019-04-02] MEDS ORDERED: CEPHALEXIN 500 MG CAPSULE PO STA (19:42)
== END 2019-04-02 20:13 | disposition home or self-care (01) ==
LOC: ER 18:36
DX: N30.01 Acute cystitis with hematuria (principal); R53.1 Weakness; G20 Parkinson's disease; F02.80 Dementia in other diseases classified elsewhere, unspecified severity, without behavioral disturbance, psychotic disturbance, mood disturbance, and anxiety; F17.210 Nicotine dependence, cigarettes, uncomplicated; I10 Essential (primary) hypertension; E11.9 Type 2 diabetes mellitus without complications; Z79.4 Long term (current) use of insulin; Z87.891 Personal history of nicotine dependence
CPT/HCPCS: 80053; 81001; 85025; 99283; 99284